=== PATIENT | female | born 1995 ===

== ENCOUNTER → 2018-07-29 09:36 | Outpatient (CLI) | payer OTHER, SELFPAY ==
--- NOTE | 2018-07-29 | DI.CT.S_ITS ---
PROCEDURE: CT KIDNEY URETER BLADDER (KUB) INDICATIONS: CALCULUS OF KIDNEY TECHNIQUE: Noncontrast 5 mm thick sections acquired from the diaphragms to the symphysis. 5 mm thick coronal and sagittal reformats were then performed. For radiation dose reduction, the following was used: automated exposure control, adjustment of mA and/or kV according to patient size. COMPARISON: Outside Film, CT, CT ABDOMEN PELVIS WITHOUT CONTRAST, 05/16/2018, 21:18. FINDINGS: Image quality: Excellent. Lung bases: Lung bases are clear. Heart size is normal. Urinary system: Both kidneys are normal in size. No kidney stones. No hydronephrosis or perinephric fat stranding. Both ureters appear non-dilated throughout their expected courses. The ureteral calculi visualized on the comparison CT dated 05/16/18 are no longer visualized and have presumably passed. Bladder wall thickness is normal; no calcified bladder stones. Other solid organs: Liver is normal in size. Gallbladder is unremarkable. Pancreas is normal in contours. Spleen is normal in size. No adrenal nodules. Peritoneum and bowel: Unenhanced bowel loops demonstrate normal wall thickness and caliber. The retrocecal appendix is thin walled and gas filled. No free fluid or air. Nodes and vessels: No retroperitoneal or mesenteric adenopathy by size criteria. Aorta and inferior vena cava are normal in caliber. Abdominal wall: No ventral hernias. Pelvis: No free pelvic fluid. No inguinal hernias or adenopathy. Bones: No suspicious bony lesions. No vertebral body compression fractures. IMPRESSION: 1. No nephrolithiasis or ureterolithiasis. No hydronephrosis or hydroureter. No bladder calculi. The distal ureteral calculi visualized on the left on 05/16/18 are no longer visualized and presumably have passed. 2. Normal appendix. Dictated by: Adriana Moore M.D. on 07/29/2018 at 11:37 Approved by: Adriana Moore M.D. on 07/29/2018 at 11:42
== END ==
PROVIDERS: PCP Family Medicine; Visit Provider Urology
DX: N20.0 Calculus of kidney (principal)
CPT/HCPCS: 74176

== ENCOUNTER 2020-12-19 08:14 | Emergency (ER) | payer OTHER, MEDICAID, SELFPAY ==
--- NOTE | 2020-12-19 08:29 | ED.URI ---
HPI - URI/Sore Throat General Chief Complaint: Upper Respiratory Symptoms Stated Complaint: tonsils swollen, can barely speak, pain w/swallow Time Seen by Provider: 12/19/20 08:27 Source: patient Mode of arrival: Ambulatory Limitations: no limitations History of Present Illness HPI Narrative: Patient is a 25-year-old female who presents with recurrent strep throat. She says that she gets strep at least 3 to 4 times a year she really wants her tonsils taken out. She was placed on a 10 day course of clindamycin starting on November 27. She says her symptoms improved she got better however she soon as she stops her throat started hurting again that was last week. Yesterday she noticed it was even more and today she woke up and felt like it was strep all over. She is able to manage her secretions. No fever or chills cough or shortness of breath. She has an anaphylactic reaction to penicillins. She now is having loose form stools after the clindamycin. She has about 3-4 bowel movements a day it is not watery or runny. No prior history of C diff. MD Complaint: sore throat Onset (ago): day(s) Duration: constant Related Data Previous Rx's Medication Instructions Recorded azithromycin 250 mg PO DAILY 5 Days #6 tab 12/19/20 cefdinir 300 mg PO Q12H #20 cap 12/19/20 Allergies Allergy/AdvReac Type Severity Reaction Status Date / Time Penicillins Allergy Verified 12/19/20 08:30 Review of Systems Review of Systems ROS Unobtainable: All systems reviewed & are unremarkable except as noted in HPI and below Constitutional Constitutional: Denies chills, Denies fever(s), Denies lethargy and Denies weakness ENT Ears, Nose, Mouth, and Throat: Reports as per HPI Cardiovascular Cardiovascular: Denies chest pain, Denies syncope, Denies irregular heart rhythm, Denies lightheadedness, Denies palpitations, Denies dyspnea, Denies dyspnea on exertion and Denies orthopnea Respiratory Respiratory: Denies cough, Denies dyspnea, Denies dyspnea on exertion and Denies wheezing Gastrointestinal Gastrointestinal: Denies abdominal pain, Reports diarrhea, Denies nausea and Denies vomiting Musculoskeletal Musculoskeletal: Denies back pain and Denies myalgias Integumentary/Breasts Skin/Breast: Denies pruritus, Denies erythema, Denies rash and Denies wounds Neurologic Neurologic: Denies syncope and Denies weakness Endocrine Endocrine: Denies palpitations Allergic/Immunologic Allergic/Immunologic: Denies wheezing Patient History Medical History Recurrent streptococcal tonsillitis Social History Smoking Status: Never smoker Exam Initial Vital Signs Initial Vital Signs: Vital Signs Temperature 99.1 F 12/19/20 08:31 Pulse Rate 87 12/19/20 08:31 Respiratory Rate 14 12/19/20 08:31 Blood Pressure 123/71 12/19/20 08:31 Pulse Oximetry 100 12/19/20 08:31 GENERAL: Well-appearing, well-nourished and in no acute distress. HEENT: Head atraumatic,EOMI, pupils reactive, face symmetric, moist mucous membranes PHARYNX: Erythematous no exudate no uvular deviation or swelling airway patent CARDIOVASCULAR: Regular rate and rhythm without murmurs, rubs or gallops. RESPIRATORY: Breath sounds equal bilaterally, no wheezes rales or rhonchi. ABDOMEN: Soft, nontender. Normoactive bowel sounds all 4 quadrants. No guarding or rebound. EXTREMITIES: Normal range of motion, no clubbing or edema. Neurovascularly intact NEUROLOGICAL: Alert and oriented x4. SKIN: Warm, dry, no laceration, no petechiae, no rashes or lesions. Course Orders Ordered: ED Orders 12/19/20 08:35 Throat Culture Stat Vital Signs Vital signs: Vital Signs - 8 hr 12/19/20 08:31 Temperature 99.1 F Pulse Rate 87 Respiratory Rate 14 Blood Pressure 123/71 Pulse Oximetry 100 MDM - URI/Sore Throat Lab Data Labs: Point of Care Testing Rapid Strep A Positive MDM Narrative Medical decision making narrative: Patient has anaphylactic reaction to penicillins. She has already been on 10 days worth of clindamycin and now has loose stool concerned for C diff if she has more clindamycin. At this time I do not think she has C diff because her stool is formed however I did discuss this with her and told her it needs to be checked if it gets worse. She states that she actually has try azithromycin a number of times she was on that before she was on clindamycin last month. She says it never works for her. At this time will try a 3rd generation cephalosporin cefdinir. Unlikely to have anaphylactic reaction. However I did discuss warning signs with her she is agreeable to trial this medication despite his possible risk I discussed all findings with the patient, Education has been performed regarding treatment plan, diagnosis, warning signs and symptoms and all concerns have been addressed. Verbally agree with and understood all of the above. Discharge Plan Departure Patient Disposition: Home Clinical Impression: Recurrent streptococcal tonsillitis Instructions: DI for Strep Throat Activity Restrictions/Additional Instructions: *You have been diagnosed with strep pharyngitis, recurrent *What to do: You do need to see ENT, ear nose and throat, to have her tonsils removed. *Continue to take medications as directed Cefdinir 300 mg twice a day for 10 days *Follow up with your primary care provider in 2-3 days *Return to ER if you should have persistent sore throat, difficulty swallowing, fever or any new, worsening or concerning symptoms Prescriptions: New azithromycin 250 mg tablet 250 mg PO DAILY 5 Days Qty: 6 RF: 0 cefdinir 300 mg capsule 300 mg PO Q12H Qty: 20 RF: 0 Referrals: Lex Amaral MD [Primary Care Provider] - Andrew Murphy MD [Physician] - Stand Alone Forms: Work Release Note
[2020-12-19 08:31] VITALS: BP 123/71; PULSE 87; RESP 14; TEMP 37.3; O2SAT 100; BMI 25.0
== END 2020-12-19 09:00 | disposition home or self-care (01) ==
PROVIDERS: Emergency Provider Emergency Medicine; PCP Family Medicine
DX: J03.01 Acute recurrent streptococcal tonsillitis (principal)
CPT/HCPCS: 87070; 87077; 87147; 87880; 99281; 99282

== ENCOUNTER 2021-12-26 17:11 | Emergency (ER) | payer OTHER, SELFPAY ==
[2021-12-26 18:09] VITALS: BP 127/76; PULSE 82; RESP 18; TEMP 36.6; O2SAT 100; BMI 26.2
--- NOTE | 2021-12-26 18:19 | DI.RAD.S_ITS ---
PROCEDURE: XR NASAL BONES MIN 3V INDICATIONS: possible broken nose TECHNIQUE: 3 views of the nasal bones acquired. COMPARISON: None. FINDINGS: Bones: There is a nondisplaced fracture of the base of the nasal bone. The sinuses are well aerated. Soft tissues: No suspicious soft tissue calcifications. IMPRESSION: Nondisplaced fracture of the base of the nasal bone. Dictated by: Alex Cavazos M.D. on 12/26/2021 at 18:43 Approved by: Alex Cavazos M.D. on 12/26/2021 at 18:44
--- NOTE | 2021-12-26 19:39 | ED_ITS ---
HPI - Head Injury <Alpesh Peguero PA-C - Last Filed: 12/26/21 20:00> General Chief complaint: Head Injury Stated complaint: Facial injury, nose Time Seen by Provider: 12/26/21 19:39 Source: patient Mode of arrival: Ambulatory History of Present Illness HPI Narrative: This is a 26-year-old female presents to the emergency department due to a nasal injury just prior to arrival. States that she was ?head banging? when she accidentally hit her nose on another person's head. Denies any loss of consciousness, dizziness, nausea, vomiting, or any other concerning signs or symptoms. Denies any difficulty breathing. Related Data Previous Rx's Medication Instructions Recorded cefdinir 300 mg capsule 300 mg PO Q12H #20 cap 12/19/20 Allergies Allergy/AdvReac Type Severity Reaction Status Date / Time Penicillins Allergy Verified 12/19/20 08:30 Review of Systems <Alpesh Peguero PA-C - Last Filed: 12/26/21 20:00> Review of Systems Narrative: See HPI Patient History <Alpesh Peguero PA-C - Last Filed: 12/26/21 20:00> Medical History Recurrent streptococcal tonsillitis Social History Smoking Status: Current every day smoker Smoking Status: Current every day smoker tobacco type: vaping alcohol intake frequency: 0-2 drinks per day Substance Use Type: marijuana Exam <Alpesh Peguero PA-C - Last Filed: 12/26/21 20:00> Narrative Exam Narrative: GENERAL: [] year old patient appears stated age. Well-developed patient, in mild distress. HEAD: Atraumatic. Normocephalic. EYES: Pupils equal round and reactive. Extraocular motions intact. No scleral icterus. No injection or drainage. ENT: Nose without bleeding, purulent drainage. Throat without erythema, tonsillar hypertrophy or exudate. Airway patent. No nasal hematoma noted. Diffuse generalized tenderness to palpation. Nasal bridge appears midline. NECK: Trachea midline. Non tender CARDIOVASCULAR: Regular rate and rhythm without murmurs, gallops, or rubs. RESPIRATORY: Clear to auscultation. Breath sounds equal bilaterally. No wheezes, rales, or rhonchi. GASTROINTESTINAL: Abdomen soft, non-tender, nondistended. EXTREMITIES: No edema or joint tenderness. BACK: Nontender without deformity or crepitance. No flank tenderness. NEURO: AOx3. SKIN: No rash or erythema of visible areas Initial Vital Signs Initial Vital Signs: Vital Signs Temperature 98 F 12/26/21 18:09 Pulse Rate 82 12/26/21 18:09 Respiratory Rate 18 12/26/21 18:09 Blood Pressure 127/76 12/26/21 18:09 Pulse Oximetry 100 12/26/21 18:09 <DO Leann Puente Last Filed: 12/27/21 01:48> Initial Vital Signs Initial Vital Signs: Vital Signs Temperature 98 F 12/26/21 18:09 Pulse Rate 82 12/26/21 18:09 Respiratory Rate 18 12/26/21 18:09 Blood Pressure 127/76 12/26/21 18:09 Pulse Oximetry 100 12/26/21 18:09 Course <Alpesh Peguero PA-C - Last Filed: 12/26/21 20:00> Orders Ordered: ED Orders 12/26/21 18:19 XR nasal bones min 3V Stat Vital Signs Vital signs: Vital Signs - 8 hr 12/26/21 18:09 Temperature 98 F Pulse Rate 82 Respiratory Rate 18 Blood Pressure 127/76 Pulse Oximetry 100 <DO Leann Puente Last Filed: 12/27/21 01:48> Orders Ordered: ED Orders 12/26/21 18:19 XR nasal bones min 3V Stat Vital Signs Vital signs: Vital Signs - 8 hr 12/26/21 18:09 Temperature 98 F Pulse Rate 82 Respiratory Rate 18 Blood Pressure 127/76 Pulse Oximetry 100 MDM - Head Injury <ESTEBAN Warren Last Filed: 12/26/21 20:00> Imaging Data Extremity x-ray #1: Radiologist's Impression: [address] [address] XRay Report Signed Patient: Dejuan Karimi MR#: [id number] : 1995 Acct:[id number] Age/Sex: 26 / F Date of Service: 12/26/21 Loc: ED Accession Number: [id number] ?? Procedure: XR nasal bones min 3V Ordering Provider: Oleg Hernandez D.O. PROCEDURE:? XR NASAL BONES MIN 3V ? INDICATIONS:? possible broken nose ? TECHNIQUE:? 3 views of the nasal bones acquired.? ? COMPARISON:? None. ? FINDINGS:? ? Bones:? There is a nondisplaced fracture of the base of the nasal bone.? The sinuses are well aerated. ? Soft tissues:? No suspicious soft tissue calcifications.? ? IMPRESSION:? Nondisplaced fracture of the base of the nasal bone. ? ? Dictated by: Alex Cavazos M.D. on 12/26/2021 at 18:43 ? ? Approved by: Alex Cavazos M.D. on 12/26/2021 at 18:44 ? MDM Narrative Medical decision making narrative: This is a 26-year-old female presenting to the emergency department due to a nondisplaced nasal bone fracture. No need for reduction. No evidence of any kind of hematoma on exam. No worrisome symptoms concerning for CVA. Discharge Plan Departure Patient Disposition: Home Clinical Impression: Nasal bone fracture Instructions: Nose Fracture Activity Restrictions/Additional Instructions: Thank you for coming to the [facility] Emergency Department today. Your x- ray shows evidence of a nasal bone fracture. It is nondisplaced which means it is in line and does not need any kind of manipulation. Please follow-up with the primary care provider for further evaluation. I hope feel better soon. You may use ibuprofen and Tylenol as needed for the pain. Prescriptions: No Action cefdinir 300 mg capsule 300 mg PO Q12H Qty: 20 0RF Referrals: Lex Amaral MD [Primary Care Provider] - <Oleg Hernandez DO - Last Filed: 12/27/21 01:48> Cosign ED Attending Coshollyature Attestation: Dr Hernandez Co-Sign Statement: I was available for consultation during this patient's emergency department visit. This chart is signed by myself for administrative purposes only. I did not have direct contact with this patient during this visit. They were seen independently by the APC.
--- NOTE | 2021-12-26 19:50 | PC.NURSE ---
no deformity noted to nose, no resp problems noted
== END 2021-12-26 20:06 | disposition home or self-care (01) ==
PROVIDERS: Emergency Provider Physician Assistant Medical; PCP Family Medicine
DX: S02.2XXA Fracture of nasal bones, initial encounter for closed fracture (principal); W51.XXXA Accidental striking against or bumped into by another person, initial encounter
CPT/HCPCS: 70160; 99281; 99283

== ENCOUNTER 2023-11-27 05:46 | Emergency (ER) | payer OTHER, MEDICAID, SELFPAY ==
[2023-11-27 05:54] VITALS: BP 103/64; PULSE 79; O2SAT 99
--- NOTE | 2023-11-27 05:55 | DI.US.S_ITS ---
PROCEDURE: US OB <= 14 WEEKS FETUS INDICATIONS: bleeding OUTSIDE/PRIOR DATING DATA: Last menstrual period (LMP): 10/07/2023. LMP-based estimated date of delivery (RADHA): 07/13/2024 First dating scan (date and location): 11/27/2023 TECHNIQUE: Real-time scanning was performed of the fetus and maternal pelvic organs, with image documentation. Endovaginal scanning was also performed to better visualize the fetus and maternal ovaries. COMPARISON: None. FINDINGS: Small subchorionic hemorrhage covering less than 1/3 of the gestational sac. Embryo: Normal morphological appearance of the growing embryo with a crown-rump length of 0.6 cm consistent with 6 weeks 3 days. Yolk sac is present. Heart rate: 117 beats per minute Maternal organs: Ovaries right corpus luteal cyst cysts measuring 2.3 x 1.6 x 1.9 cm. IMPRESSION: Live intrauterine with gestational age of 6 weeks 3 days and estimated delivery based on ultrasound of 07/19/2024, a 6 day discrepancy from last menstrual period dating, consider re-dating. Small subchorionic hemorrhage. We strive to produce accurate, complete, and clear reports of imaging services. To assist us in improving patient care, this report was composed using standard report templates and voice recognition software. Therefore, it may contain abnormal punctuation, insertions and/or omissions. Occasional wrong-word or sound-alike substitutions may occur. Though we review the report and make efforts to correct it, we do recommend that the report be read carefully in proper context to recognize any text inaccuracies. Dictated by: Jeronimo Roberts M.D. on 11/27/2023 at 8:07 Approved by: Jeronimo Roberts M.D. on 11/27/2023 at 8:18
[2023-11-27 05:58] VITALS: BP 103/64; PULSE 76; RESP 16; TEMP 36.7; O2SAT 98; BMI 29.5
[2023-11-27 06:00] VITALS: BP 113/58; PULSE 76; O2SAT 100
[2023-11-27 06:18] LABS: Add Manual Diff / Slide Review NO; Basophils Absolute Auto 100 /uL (0-100); Basophils Percent Auto 0.8 % (0-2); Eosinophils Absolute Auto 200 /uL (0-450); Eosinophils Percent Auto 1.2 % (2-4); Hematocrit 39.9 % (36-46); Hemoglobin 13.5 g/dL (12.0-16.0); Lymphocytes Absolute Auto 4600 /uL (1100-4500); Lymphocytes Percent Auto 36.1 % (25-40); Mean Corpuscular HGB Conc 33.8 % (30-36); Mean Corpuscular Hemoglobin 31.6 PG (26-34); Mean Corpuscular Volume 93.4 fL (80-100); Monocytes Absolute Auto 700 /uL (0-900); Monocytes Percent Auto 5.9 % (3-14); Neutrophils Absolute Auto 7100 /uL (1500-7000); Platelet Count 269 X10^3/uL (150-400); Red Blood Cell Count 4.27 X10^6/uL (4.0-5.2); Red Cell Distribution Width 13.6 % (11.6-14.8); White Blood Cell Count 12.6 X10^3/uL (4.5-11.0)
--- NOTE | 2023-11-27 06:22 | ED.PREGNANCY ---
HPI - <Lashaun Santana DO - Last Filed: 11/28/23 00:08> General Chief complaint: Urogenital-Female Stated complaint: 7 weeks preg/bleeding Time Seen by Provider: 11/27/23 05:55 Source: patient Mode of arrival: Ambulatory Limitations: no limitations History of Present Illness HPI Narrative: Patient is a 28-year-old female presenting today with vaginal bleeding. She thinks she is about 7 weeks actively trying to get . She is having some very mild cramping. She reports that she was at work last night and went to the bathroom when she wiped she noticed some blood. Minimal cramping. No nausea or vomiting. She is scheduled to see OB at [facility]. She has not yet been evaluated for this Related Data Previous Rx's Medication Instructions Recorded cefdinir 300 mg capsule 300 mg PO Q12H #20 caps 12/19/20 Allergies Allergy/AdvReac Type Severity Reaction Status Date / Time Penicillins Allergy Verified 12/19/20 08:30 Exam <Lashaun Santana DO - Last Filed: 11/28/23 00:08> Initial Vital Signs Initial Vital Signs: Vital Signs Pulse Rate 79 11/27/23 05:54 Blood Pressure 103/64 11/27/23 05:54 Pulse Oximetry 99 11/27/23 05:54 GENERAL: Alert 28-year-old female who appears well and in no acute distress. HEENT: Head atraumatic,EOMI, pupils reactive, face symmetric, moist mucous membranes CARDIOVASCULAR: Regular rate and rhythm without murmurs, rubs or gallops. RESPIRATORY: Breath sounds equal bilaterally, no wheezes rales or rhonchi. ABDOMEN: Soft, nontender. Normoactive bowel sounds all 4 quadrants. No guarding or rebound. EXTREMITIES: Normal range of motion, no clubbing or edema. Neurovascularly intact NEUROLOGICAL: Alert and oriented x4. SKIN: Warm, dry, no laceration, no petechiae, no rashes or lesions. <Ijeoma Argueta MD - Last Filed: 11/27/23 08:05> Initial Vital Signs Initial Vital Signs: Vital Signs Pulse Rate 79 11/27/23 05:54 Blood Pressure 103/64 11/27/23 05:54 Pulse Oximetry 99 11/27/23 05:54 Course <DO Leann Contreras Last Filed: 11/28/23 00:08> Orders Ordered: ED Orders 11/27/23 05:55 US OB <= 14 weeks fetus Stat 11/27/23 06:10 ABO RH Type Stat CBC Auto Diff [Complete Blood Count AUTO DIFF] Stat CMP [Comprehensive Metabolic Panel] Stat HCG Quantitative /Beta subunit Stat Vital Signs Vital signs: Vital Signs - 8 hr 11/27/23 05:54 11/27/23 05:54 11/27/23 05:58 Temperature 98.1 F Pulse Rate 79 76 Respiratory Rate 16 Blood Pressure 103/64 103/64 Pulse Oximetry 99 98 Oxygen Delivery Method Room Air 11/27/23 06:00 11/27/23 06:00 11/27/23 06:30 Temperature Pulse Rate 76 Respiratory Rate Blood Pressure 113/58 L 112/59 L Pulse Oximetry 100 Oxygen Delivery Method 11/27/23 06:30 11/27/23 07:00 11/27/23 07:00 Temperature Pulse Rate 74 78 Respiratory Rate Blood Pressure 106/58 L Pulse Oximetry 99 100 Oxygen Delivery Method <Ijeoma Argueta MD - Last Filed: 11/27/23 08:05> Orders Ordered: ED Orders 11/27/23 05:55 US OB <= 14 weeks fetus Stat 11/27/23 06:10 ABO RH Type Stat CBC Auto Diff [Complete Blood Count AUTO DIFF] Stat CMP [Comprehensive Metabolic Panel] Stat HCG Quantitative /Beta subunit Stat Vital Signs Vital signs: Vital Signs - 8 hr 11/27/23 05:54 11/27/23 05:54 11/27/23 05:58 Temperature 98.1 F Pulse Rate 79 76 Respiratory Rate 16 Blood Pressure 103/64 103/64 Pulse Oximetry 99 98 Oxygen Delivery Method Room Air 11/27/23 06:00 11/27/23 06:00 11/27/23 06:30 Temperature Pulse Rate 76 Respiratory Rate Blood Pressure 113/58 L 112/59 L Pulse Oximetry 100 Oxygen Delivery Method 11/27/23 06:30 11/27/23 07:00 11/27/23 07:00 Temperature Pulse Rate 74 78 Respiratory Rate Blood Pressure 106/58 L Pulse Oximetry 99 100 Oxygen Delivery Method MDM - OB/Uterine Contractions <DO Leann Contreras Last Filed: 11/28/23 00:08> Lab Data 11/27/23 06:10 11/27/23 06:10 Labs: Lab Results 11/27/23 Range/Units 06:10 WBC 12.6 H (4.5-11.0) X10^3/uL RBC 4.27 (4.0-5.2) X10^6/uL Hgb 13.5 (12.0-16.0) g/dL Hct 39.9 (36-46) % MCV 93.4 (80-100) fL MCH 31.6 (26-34) PG MCHC 33.8 (30-36) % RDW 13.6 (11.6-14.8) % Plt Count 269 (150-400) X10^3/uL Neut % (Auto) 56.0 (50-75) % Lymph % (Auto) 36.1 (25-40) % [place] % (Auto) 5.9 (3-14) % Eos % (Auto) 1.2 L (2-4) % Baso % (Auto) 0.8 (0-2) % Neut # (Auto) 7100 H (7965-7487) /uL Lymph # (Auto) 4600 H (8458-4988) /uL [place] # (Auto) 700 (0-900) /uL Eos # (Auto) 200 (0-450) /uL Baso # (Auto) 100 (0-100) /uL Sodium 134 L (137-145) mmol/L Potassium 4.0 (3.4-5.1) mmol/L Chloride 107 (98-107) mmol/L Carbon Dioxide 19 L (22-32) mmol/L BUN 10 (7-17) mg/dL Creatinine 0.72 (0.52-1.04) mg/dL Estimated GFR > 60 (>60) mL/min BUN/Creatinine Ratio 13.9 (6-22) Glucose 82 (70-100) mg/dL Calcium 9.2 (8.4-10.2) mg/dL Total Bilirubin 0.6 (0.2-1.3) mg/dL AST 27 (14-36) IU/L ALT 17 (<35) IU/L Alkaline Phosphatase 63 (38-126) U/L Total Protein 7.5 (6.3-8.2) g/dL Albumin 4.3 (3.5-5.0) g/dL Globulin 3.2 (1.7-4.1) g/dL Albumin/Globulin Ratio 1.3 (1.0-2.8) HCG, Quant 56151 mIU/mL Blood Type AB Positive MDM Narrative Medical decision making narrative: Patient healthy 28-year-old female newly presents today with bleeding while wiping. She has no real cramping. She has miscarried before. She is hemodynamically stable. She has not yet been seen for this . Blood work and ultrasound pending. Patient signed out to Dr. Argueta. Care of patient is signed out to me by Dr. Santana at 7:00 a.m. resting comfortably in bed, hemodynamically stable. She was blood type AB-positive. Ultrasound shows small subchorionic bleed, otherwise living IUP with heart tones present. Patient informed of lab and imaging findings. She was counseled to follow up pelvic rest until seen and cleared by OBGYN. Referral provided. ED return precautions discussed at bedside. Patient expressed understanding of the plan and is in agreement at this time. All questions answered at the time of discharge. <Ijeoma Argueta MD - Last Filed: 11/27/23 08:05> Lab Data Labs: Lab Results 11/27/23 Range/Units 06:10 WBC 12.6 H (4.5-11.0) X10^3/uL RBC 4.27 (4.0-5.2) X10^6/uL Hgb 13.5 (12.0-16.0) g/dL Hct 39.9 (36-46) % MCV 93.4 (80-100) fL MCH 31.6 (26-34) PG MCHC 33.8 (30-36) % RDW 13.6 (11.6-14.8) % Plt Count 269 (150-400) X10^3/uL Neut % (Auto) 56.0 (50-75) % Lymph % (Auto) 36.1 (25-40) % [place] % (Auto) 5.9 (3-14) % Eos % (Auto) 1.2 L (2-4) % Baso % (Auto) 0.8 (0-2) % Neut # (Auto) 7100 H (3392-3605) /uL Lymph # (Auto) 4600 H (6925-9900) /uL [place] # (Auto) 700 (0-900) /uL Eos # (Auto) 200 (0-450) /uL Baso # (Auto) 100 (0-100) /uL Sodium 134 L (137-145) mmol/L Potassium 4.0 (3.4-5.1) mmol/L Chloride 107 (98-107) mmol/L Carbon Dioxide 19 L (22-32) mmol/L BUN 10 (7-17) mg/dL Creatinine 0.72 (0.52-1.04) mg/dL Estimated GFR > 60 (>60) mL/min BUN/Creatinine Ratio 13.9 (6-22) Glucose 82 (70-100) mg/dL Calcium 9.2 (8.4-10.2) mg/dL Total Bilirubin 0.6 (0.2-1.3) mg/dL AST 27 (14-36) IU/L ALT 17 (<35) IU/L Alkaline Phosphatase 63 (38-126) U/L Total Protein 7.5 (6.3-8.2) g/dL Albumin 4.3 (3.5-5.0) g/dL Globulin 3.2 (1.7-4.1) g/dL Albumin/Globulin Ratio 1.3 (1.0-2.8) HCG, Quant 31257 mIU/mL Blood Type AB Positive MDM Narrative Medical decision making narrative: Care of patient is signed out to me by Dr. Santana at 7:00 a.m. resting comfortably in bed, hemodynamically stable. She was blood type AB-positive. Ultrasound shows small subchorionic bleed, otherwise living IUP with heart tones present. Patient informed of lab and imaging findings. She was counseled to follow up pelvic rest until seen and cleared by OBGYN. Referral provided. ED return precautions discussed at bedside. Patient expressed understanding of the plan and is in agreement at this time. All questions answered at the time of discharge. Discharge Plan Departure Patient Disposition: Home Clinical Impression: Vaginal bleeding affecting early , Type AB blood, Rh positive Subchorionic bleed Qualifiers: Trimester: first trimester Qualified Code(s): O20.8 - Other hemorrhage in early Instructions: DI for Threatened Activity Restrictions/Additional Instructions: Your blood type is AB-positive. Your ultrasound shows that you have a small subchorionic bleed. These often resolve on their own but this may worsen, please monitor your symptoms and follow up with your OBGYN. It was recommended that you follow pelvic rest precautions, AKA nothing in the vagina until seen and cleared by your OBGYN. Prescriptions: No Action cefdinir 300 mg capsule 300 mg PO Q12H Qty: 20 0RF Referrals: Lex Amaral MD [Primary Care Provider] - Raysa Brown DO [Physician] - Stand Alone Forms: Patient Portal/API
[2023-11-27 06:30] VITALS: BP 112/59; PULSE 74; O2SAT 99
[2023-11-27 06:32] LABS: Alanine Aminotransferase 17 IU/L (<35); Albumin 4.3 g/dL (3.5-5.0); Albumin Globulin Ratio 1.3 (1.0-2.8); Alkaline Phosphatase 63 U/L (38-126); Aspartate Aminotransferase 27 IU/L (14-36); BUN Creatinine Ratio 13.9 (6-22); Bilirubin Total 0.6 mg/dL (0.2-1.3); Blood Urea Nitrogen 10 mg/dL (7-17); Calcium 9.2 mg/dL (8.4-10.2); Carbon Dioxide 19 mmol/L (22-32); Chloride 107 mmol/L (98-107); Estimated Glomerular Filt Rate > 60 mL/min (>60); Globulin 3.2 g/dL (1.7-4.1); Glucose 82 mg/dL (70-100); Sodium 134 mmol/L (137-145); Total Protein 7.5 g/dL (6.3-8.2)
[2023-11-27 07:00] VITALS: BP 106/58; PULSE 78; O2SAT 100
[2023-11-27 07:12] LABS: HCG Quantitative /Beta subunit 23978 mIU/mL
[2023-11-27 07:15] LABS: HEMOLYSIS 57 (0-50)
== END 2023-11-27 08:16 | disposition home or self-care (01) ==
PROVIDERS: Emergency Medicine; Emergency Provider Emergency Medicine; PCP Family Medicine
DX: O20.8 Other hemorrhage in early pregnancy (principal); Z67.30 Type AB blood, Rh positive; Z3A.01 Less than 8 weeks gestation of pregnancy
CPT/HCPCS: 36415; 76801; 80053; 84702; 85025; 86900; 86901; 99283; 99284